=== PATIENT | male | born 1995 | race Caucasian/White ===

== ENCOUNTER 2018-09-03 18:07 | Inpatient (IN) | payer BC ==
[2018-09-03 18:54] LABS: #Basophils 0.1 thou/uL (0.0-0.2); #Monocytes 0.4 thou/uL (0.11-0.59); #Neutrophils 2.6 thou/uL (1.40-6.50); %Basophils 1.1 % (0.0-1.0); %Eosinophils 0.6 % (0.0-10.0); %Lymphocytes 40.1 % (21.0-51.0); %Monocytes 6.9 % (0.0-10.0); %Neutrophils 51.3 % (42.0-75.0); Hemoglobin 15.5 g/dL (14.0-18.0); Mean Corpuscular Hemoglobin 33.8 pg (27.0-31.0); Mean Corpuscular Volume 96.7 fL (78.0-98.0); Mean Platelet Volume 6.5 fL (7.4-10.4); Platelet Count 404 thou/uL (130-400); RBC Distribution Width 11.1 % (11.5-14.5); Red Blood Cell (RBC) Count 4.57 mill/uL (4.70-6.10)
[2018-09-03 19:17] LABS: Bilirubin Negative (Negative); Blood, Urine Negative (Negative); Clarity CLEAR (Clear); Glucose, Urine (Dipstick) Negative (Negative); Leukocyte Negative (Negative); Nitrite Negative (Negative); Protein, Urine (Dipstick) Negative (Neg-Trace); Specific Gravity, Urine 1.011 (1.002-1.036); Urobilinogen 0.2 mg/dL (0.2-1.0)
[2018-09-03 19:17] LABS: ALT (SGPT) 54 U/L (8-55); AST (SGOT) 44 U/L (5-34); Acetaminophen Less than 6.0 mcg/mL (10.0-30.0); Albumin 4.3 g/dL (3.5-5.0); Alcohol 251 mg/dL (Less than 10); Alkaline Phosphatase 95 U/L (40-150); Anion Gap 12 mmol/L (10-20); BUN (Urea Nitrogen) 10 mg/dL (8.9-20.6); Bilirubin, Total 0.3 mg/dL (0.2-1.2); CK (CPK) 115 U/L (30-200); Calc. Creatinine Clearance 0 mL/min (70-130); Carbon Dioxide 28 mmol/L (22-29); Chloride 105 mmol/L (98-107); Estimated GFR-MDRD Greater than 90; Globulin 3.3 g/dL (2.4-3.5); Glucose 113 mg/dL (70-105); Potassium 3.5 mmol/L (3.5-5.1); Protein, Total 7.6 g/dL (6.0-8.3); Salicylate Less than 8.0 mg/dL (15.0-30.0); Sodium 141 mmol/L (136-145)
[2018-09-03 19:27] LABS: Amphetamine Not Detected (NotDetected); Barbiturates Screen Not Detected (NotDetected); Benzodiazepine Screen Not Detected (NotDetected); Cocaine Metabolite Screen Not Detected (NotDetected); Medtox Control Line Valid? VALID (VALID); Medtox Reader # READER 4; Methadone Not Detected (NotDetected); Methamphetamine Not Detected (NotDetected); Opiate Screen Not Detected (NotDetected); Oxycodone Screen Not Detected (NotDetected); Phencyclidine (PCP) Not Detected (NotDetected); THC/Cannabinoid Screen Not Detected (NotDetected); Tricyclic Screen Not Detected (NotDetected)
--- NOTE | 2018-09-03 21:39 | HP ---
PRIMARY CARE PROVIDER: Dr. Jose Michelle in [place], [place]. CHIEF COMPLAINT: Overdose. HISTORY OF PRESENT ILLNESS: Mr. Haq is a pleasant 23-year-old gentleman who was seen at [facility] on 10/03/2018. The patient is currently sleepy. He is surrounded by fa nolberto members at the bedside. History was obtained from patient, discussion with family members, disc ussion with the emergency room physician, and review of medical record. The patient reportedly attempted suicide earlier today. He took 30 of Ambien, 10 mg dose each. He s ent a text to a friend, admitting to suicide attempt. His girlfriend called 911 and he has been brou ght to the emergency room. He has a history of depression, but no suicidal attempts in the past. Initially, he denies drinking any alcohol, but on further questioning, he reports consuming alcohol. He then told me that he drank 3 alcoholic drinks and subsequently told his family that he drank more than that. REVIEW OF SYSTEMS: All other systems were reviewed and found to be negative. PAST MEDICAL HISTORY: Pancreatitis. PAST SURGICAL HISTORY: Right knee surgery. FAMILY HISTORY: Significant for depression in his maternal grandmother. ALLERGIES: No known drug allergies. CURRENT MEDICATIONS: Zoloft 100 mg daily, Xanax 0.5 mg as needed, and zolpidem 10 mg daily. PHYSICAL EXAMINATION: GENERAL: Mr. Haq is sleepy, but arousable, not in acute distress. VITAL SIGNS: Blood pressure is 141/96, pulse 146, respiratory rate 18, and oxygen saturation 95% on room air. He is afebrile. EYES: No scleral icterus. No conjunctival pallor. ENT: Moist mucosal membranes. No oropharyngeal erythema or exudates. NECK: Supple, nontender. Trachea is midline. RESPIRATORY: Accessory muscles of breathing are not active. Chest wall movements are symmetric bila terally. LUNGS: Clear to auscultation without wheeze, rhonchi, or crepitations. CARDIOVASCULAR: S1 and S2 are heard. Regular and tachycardic. Peripheral pulses palpable. No espino tid bruit, no pericardial rub. ABDOMEN: Soft, nontender, bowel sounds are heard. No hepatomegaly, no splenomegaly. NEUROLOGIC: Cranial nerves II through XII intact. Deep tendon reflexes 2+. MUSCULOSKELETAL: Power is 5/5 in all 4 extremities. SKIN: No rashes or subcutaneous nodules. LYMPHATIC: No cervical lymphadenopathy. PSYCHIATRIC: Patient is sleepy, unable to assess affect. He is oriented to person and place, not to time. DATABASE: Mr. Haq's labs and investigations were reviewed. Electrocardiogram shows sinus tac hycardia, no ST changes to suggest an acute coronary syndrome. He has normal white count, normal hem oglobin, elevated platelet count of 404,000, normal electrolytes, normal creatinine, mildly elevated AST of 44, otherwise unremarkable liver profile, normal TSH, normal urinalysis and a negative urine d rug screen. Plasma alcohol level is elevated at 251. ASSESSMENT AND PLAN: Mr. Haq is a pleasant 23-year-old gentleman who was seen at [facility] on 09/03/2018. His problem list includes: 1. Overdose: Mr. Haq is presenting with overdose on Ambien. He is also here with alcohol in toxication. Poison Control Center has been contacted by the emergency room physician. I have advise d observation and intravenous fluids for at least 12 hours. Patient will be admitted to telemetry [facility] for monitoring. 2. Suicide attempt: [facility] will be consulted once patient is medically cleared. 3. Alcohol abuse: We will start patient on ASE protocol as well as banana bag. Many thanks for allowing me to participate in your patient's care. Please feel free to contact me wi th any questions or concerns. LEVEL OF RISK: Moderate. LEVEL OF COMPLEXITY: Moderate.
[2018-09-03] MEDS: Multivitamins, Adult 10 ML, Folic Acid 1 MG, Thiamine HCl 100 MG in Dextrose 5 %-0.45 %... IV SCH (23:21)
[2018-09-03] MEDS ORDERED: Ondansetron ODT 4 MG TAB SL PRN (23:38)
[2018-09-03] MEDS ORDERED: Ondansetron PF 4 MG/2 ML Vial IVP PRN (23:38)
[2018-09-04 00:01] VITALS: BMI 24.3
[2018-09-04 05:40] LABS: Anion Gap 13 mmol/L (10-20); BUN (Urea Nitrogen) 9 mg/dL (8.9-20.6); Calc. Creatinine Clearance 159 mL/min (70-130); Calcium 8.6 mg/dL (7.8-10.44); Carbon Dioxide 26 mmol/L (22-29); Chloride 104 mmol/L (98-107); Estimated GFR-MDRD Greater than 90; Glucose 88 mg/dL (70-105); Potassium 3.9 mmol/L (3.5-5.1); Sodium 139 mmol/L (136-145)
[2018-09-04 05:48] LABS: Eosinophils 2 % (0-10); Lymphocytes 61 % (21-51); MDiff Complete? YES; Mean Corpuscular HGB CONC 33.7 g/dL (32.0-36.0); Mean Corpuscular Hemoglobin 32.9 pg (27.0-31.0); Mean Corpuscular Volume 97.5 fL (78.0-98.0); Mean Platelet Volume 6.6 fL (7.4-10.4); Monocytes 4 % (0-10); Neutrophil 33 % (42-75); Platelet Count 360 thou/uL (130-400); RBC Morphology Normal; Red Blood Cell (RBC) Count 4.57 mill/uL (4.70-6.10); White Blood Cell (WBC) Count 5.5 thou/uL (4.8-10.8)
[2018-09-04] MEDS: Acetaminophen 325 MG TAB PO PRN ×3 (11:02→21:14)
[2018-09-04] MEDS: Sodium Chloride 0.9% 1,000 ML IV SCH ×4 (12:08→20:59)
[2018-09-04] MEDS ORDERED: Lorazepam 1 MG TAB PO PRN (14:58)
--- NOTE | 2018-09-04 15:02 | PDOC.PN ---
- Subjective Encounter Start Date: 09/04/18 Encounter Start Time: 14:35 Subjective: f/u for suicide attempt with Ambien OD and ETOH abuse. States feeling -: better but nervous. Some tachycardia noted on telemetry. - Objective MAR Reviewed: Yes Vital Signs & Weight: Vital Signs (12 hours) Temp Pulse Resp BP Pulse Ox 09/04/18 10:57 98.7 F 105 H 106 H 139/96 H 97 09/04/18 08:56 97.9 F 106 H 17 156/99 H 98 09/04/18 04:00 97.3 F L 89 12 128/78 99 Weight Weight 179 lb 1.6 oz I&O: 09/03/18 09/04/18 09/05/18 06:59 06:59 06:59 Intake Total 820 Balance 820 Result Diagrams: 09/04/18 04:36 09/04/18 04:36 Additional Labs: Laboratory Tests 09/03/18 09/03/18 18:45 18:45 TSH 3rd Generation 1.4051 Plasma Alcohol 251 H EKG Reviewed by me: Yes (Tele - SR in 90-100's) Phys Exam - Physical Examination Constitutional: NAD alert, responsive HEENT: PERRLA, sclera anicteric, oral pharynx no lesions Neck: no nodes, no JVD, supple, full ROM Respiratory: no wheezing, no rales, no rhonchi, clear to auscultation bilateral S1, S2 Cardiovascular: RRR, no significant murmur, no rub, gallop Gastrointestinal: soft, non-tender, no distention, positive bowel sounds Musculoskeletal: no edema, pulses present Neurological: normal sensation, moves all 4 limbs Psychiatric: A&O x 3 Skin: no rash, normal turgor, cap refill <2 seconds Dx/Plan (1) Suicide attempt by drug ingestion Code(s): T50.902A - POISONING BY UNSP DRUG/MEDS/BIOL SUBST, SELF-HARM, INIT Status: Acute Comment: Consult [facility] for safety plan, continue IVF's and supportive mgmt, sitter 1:1 (2) Alcohol intoxication Status: Acute Comment: Add Ativan 1mg po q4h prn agitation/withdrawal (3) Depression Code(s): F32.9 - MAJOR DEPRESSIVE DISORDER, SINGLE EPISODE, UNSPECIFIED Status : Chronic Comment: Resume Zoloft 50mg daily (4) Anxiety Code(s): F41.9 - ANXIETY DISORDER, UNSPECIFIED Status: Acute Comment: Ativan prn - Plan plan discussed w/ family, social worker assistant, DVT proph w/SCDs Continue supportive mgmt -: [place] 1:1 -: [facility] consult for safety plan -: Parents planning on transfer to in psych unit at [facility] -: Likely transfer in 24h * .
[2018-09-04] MEDS: Multivitamins, Adult 10 ML, Folic Acid 1 MG, Thiamine HCl 100 MG in Dextrose 5 %-0.45 %... IV SCH (20:59)
[2018-09-05] MEDS: Acetaminophen 325 MG TAB PO PRN ×2 (03:34→15:42)
[2018-09-05] MEDS: Sodium Chloride 0.9% 1,000 ML IV SCH (14:51)
[2018-09-05] MEDS: metroNIDAZOLE 500 MG TAB PO SCH ×2 (15:01→20:45)
--- NOTE | 2018-09-05 15:02 | PDOC.PN ---
- Subjective Encounter Start Date: 09/05/18 Encounter Start Time: 14:45 Subjective: f/u for suicide attempt currently feeling ok. Apparently had several -: loose stools and stools showed + c. diff toxin/antigen. May have been -: exposed from recent visit with family in healthcare facility. - Objective MAR Reviewed: Yes Vital Signs & Weight: Vital Signs (12 hours) Temp Pulse Resp BP BP Pulse Ox 09/05/18 11:25 98.4 F 84 16 156/109 H 98 09/05/18 08:47 99.4 F 75 15 150/95 H 99 09/05/18 04:00 97.8 F 90 13 150/93 H 100 Weight Weight 179 lb 5 oz I&O: 09/04/18 09/05/18 09/06/18 06:59 06:59 06:59 Intake Total 820 2905 Balance 820 2905 Result Diagrams: 09/04/18 04:36 09/04/18 04:36 Additional Labs: Accuchecks 09/05/18 10:42 POC Glucose 136 H Laboratory Tests 09/03/18 09/03/18 18:45 18:45 TSH 3rd Generation 1.4051 Plasma Alcohol 251 H EKG Reviewed by me: Yes (Tele - SR) Phys Exam - Physical Examination Constitutional: NAD HEENT: PERRLA, sclera anicteric, oral pharynx no lesions Neck: no nodes, no JVD, supple, full ROM Respiratory: no wheezing, no rales, no rhonchi, clear to auscultation bilateral S1, S2 Cardiovascular: RRR, no significant murmur, no rub, gallop Gastrointestinal: soft, non-tender, no distention, positive bowel sounds Musculoskeletal: no edema, pulses present Neurological: normal sensation, moves all 4 limbs Psychiatric: A&O x 3 Skin: no rash, normal turgor, cap refill <2 seconds Dx/Plan (1) Suicide attempt by drug ingestion Code(s): T50.902A - POISONING BY UNSP DRUG/MEDS/BIOL SUBST, SELF-HARM, INIT Status: Acute Comment: Consult [facility] for safety plan, plan for inpt psych admit once medically cleared (2) Alcohol intoxication Status: Acute Comment: Add Ativan 1mg po q4h prn agitation/withdrawal, MVI, Folate (3) Depression Code(s): F32.9 - MAJOR DEPRESSIVE DISORDER, SINGLE EPISODE, UNSPECIFIED Status : Chronic Comment: Resume Zoloft 50mg daily (4) Anxiety Code(s): F41.9 - ANXIETY DISORDER, UNSPECIFIED Status: Acute Comment: Ativan prn (5) Clostridium difficile colitis Status: Acute Comment: Flagyl 500mg po TID, Florastor daily - Plan plan discussed w/ family, social worker assistant, out of bed/ambulate Stable currently -: Sitter 1:1 -: Start Flagyl 500mg po TID -: Contact precautions -: Hold transfer to inpt psych due to + c. difficile * Transfer to medical
[2018-09-05] MEDS ORDERED: Lorazepam 1 MG TAB PO PRN (19:17)
[2018-09-05] MEDS ORDERED: Lorazepam 1 MG TAB PO SCH (19:30)
[2018-09-06] MEDS: Lorazepam 1 MG TAB PO SCH ×6 (00:27→21:39)
[2018-09-06] MEDS: Acetaminophen 325 MG TAB PO PRN (00:29)
[2018-09-06] MEDS: Saccharomyces boulardii 250 MG CAP PO SCH (09:14)
[2018-09-06] MEDS: Folic Acid 1 MG TAB PO SCH (09:14)
[2018-09-06] MEDS: metroNIDAZOLE 500 MG TAB PO SCH ×3 (09:15→21:39)
[2018-09-06] MEDS: Multivit, Therapeutic 1 TAB PO SCH (09:15)
--- NOTE | 2018-09-06 17:51 | PDOC.PN ---
- Subjective Encounter Start Date: 09/06/18 Encounter Start Time: 17:40 Subjective: f/u for C. diff colitis and previous OD with Ambien. 3 BM's today but -: tolerating Flagyl. Less anxiety and no withdrawal per nursing. - Objective MAR Reviewed: Yes Vital Signs & Weight: Vital Signs (12 hours) Temp Pulse Resp BP Pulse Ox 09/06/18 16:00 98.4 F 97 09/06/18 15:47 98.3 F 109 H 20 137/90 98 09/06/18 12:00 96 09/06/18 11:58 98.1 F 115 H 16 137/96 H 98 09/06/18 08:00 97 Weight Weight 179 lb 5 oz I&O: 09/05/18 09/06/18 09/07/18 06:59 06:59 06:59 Intake Total 2905 720 Balance 2905 720 Result Diagrams: 09/04/18 04:36 09/04/18 04:36 Additional Labs: Microbiology 09/05/18 05:20 Stool Campylobacter Antigen Assay - Final 09/05/18 05:20 Stool Shiga Toxin Test - Final 09/05/18 05:20 Stool C. difficile GDH Antigen & Toxins - Final 09/05/18 05:20 Stool Clostridium difficile Toxin A&B PCR - Final 09/05/18 05:20 Stool Stool Culture - Preliminary Laboratory Tests 09/03/18 09/03/18 18:45 18:45 TSH 3rd Generation 1.4051 Plasma Alcohol 251 H Phys Exam - Physical Examination Constitutional: NAD HEENT: PERRLA, sclera anicteric, oral pharynx no lesions Neck: no nodes, no JVD, supple, full ROM Respiratory: no wheezing, no rales, no rhonchi, clear to auscultation bilateral S1, S2 Cardiovascular: RRR, no significant murmur, no rub, gallop Gastrointestinal: soft, non-tender, no distention, positive bowel sounds Musculoskeletal: no edema, pulses present Neurological: normal sensation, moves all 4 limbs Psychiatric: A&O x 3 Skin: no rash, normal turgor, cap refill <2 seconds Dx/Plan (1) Clostridium difficile colitis Status: Acute Comment: Flagyl 500mg po TID, add Vancomycin 125mg po QID, Florastor daily (2) Suicide attempt by drug ingestion Code(s): T50.902A - POISONING BY UNSP DRUG/MEDS/BIOL SUBST, SELF-HARM, INIT Status: Acute Comment: Consult [facility] for safety plan, plan for inpt psych admit once medically cleared (3) Alcohol intoxication Status: Acute Comment: Add Ativan 2mg po q4h prn agitation/withdrawal, MVI, Folate (4) Depression Code(s): F32.9 - MAJOR DEPRESSIVE DISORDER, SINGLE EPISODE, UNSPECIFIED Status : Chronic Comment: Resume Zoloft 50mg daily (5) Anxiety Code(s): F41.9 - ANXIETY DISORDER, UNSPECIFIED Status: Acute Comment: Ativan prn - Plan plan discussed w/ family, continue antibiotics, out of bed/ambulate Stable overall -: Continue Flagyl -: Add Vancomycin 125mg QID -: Continue Ativan, MVI, Folate * .
[2018-09-06] MEDS: Vancomycin HCl 25 MG/ML Oral PO SCH (19:16)
[2018-09-07] MEDS: Vancomycin HCl 25 MG/ML Oral PO SCH ×4 (00:31→17:30)
[2018-09-07] MEDS: Lorazepam 1 MG TAB PO SCH ×6 (00:32→20:43)
[2018-09-07] MEDS: metroNIDAZOLE 500 MG TAB PO SCH ×3 (08:37→20:43)
[2018-09-07] MEDS: Saccharomyces boulardii 250 MG CAP PO SCH (08:37)
[2018-09-07] MEDS: Folic Acid 1 MG TAB PO SCH (08:37)
[2018-09-07] MEDS: Multivit, Therapeutic 1 TAB PO SCH (08:37)
--- NOTE | 2018-09-07 14:18 | PDOC.PN ---
- Subjective Encounter Start Date: 09/07/18 Encounter Start Time: 14:00 Subjective: f/u for c. diff colitis on current Vancomycin/Flagyl. Diarrhea minimal -: and less frequency. Feels better overall. - Objective MAR Reviewed: Yes Vital Signs & Weight: Vital Signs (12 hours) Temp Pulse Resp BP BP Pulse Ox 09/07/18 12:00 98.1 F 83 16 152/82 H 94 L 09/07/18 08:00 97.8 F 90 18 126/81 99 09/07/18 04:00 97.9 F 115 H 16 136/90 96 Weight Weight 179 lb 5 oz I&O: 09/06/18 09/07/18 09/08/18 06:59 06:59 06:59 Intake Total 720 Balance 720 Result Diagrams: 09/04/18 04:36 09/04/18 04:36 Additional Labs: Microbiology 09/05/18 05:20 Stool Campylobacter Antigen Assay - Final 09/05/18 05:20 Stool Shiga Toxin Test - Final 09/05/18 05:20 Stool C. difficile GDH Antigen & Toxins - Final 09/05/18 05:20 Stool Clostridium difficile Toxin A&B PCR - Final 09/05/18 05:20 Stool Stool Culture - Preliminary Laboratory Tests 09/03/18 09/03/18 18:45 18:45 TSH 3rd Generation 1.4051 Plasma Alcohol 251 H Phys Exam - Physical Examination Constitutional: NAD HEENT: PERRLA, sclera anicteric, oral pharynx no lesions Neck: no nodes, no JVD, supple, full ROM Respiratory: no wheezing, no rales, no rhonchi, clear to auscultation bilateral S1, S2 Cardiovascular: RRR, no significant murmur, no rub, gallop Gastrointestinal: soft, non-tender, no distention, positive bowel sounds Musculoskeletal: no edema, pulses present Neurological: normal sensation, moves all 4 limbs Psychiatric: A&O x 3 Skin: no rash, normal turgor, cap refill <2 seconds Dx/Plan (1) Clostridium difficile colitis Status: Acute Comment: Flagyl 500mg po TID, add Vancomycin 125mg po QID, Florastor daily (2) Suicide attempt by drug ingestion Code(s): T50.902A - POISONING BY UNSP DRUG/MEDS/BIOL SUBST, SELF-HARM, INIT Status: Acute Comment: Consult [facility] for safety plan, plan for inpt psych admit once medically cleared (3) Alcohol intoxication Status: Acute Comment: Add Ativan 2mg po q4h prn agitation/withdrawal, MVI, Folate (4) Depression Code(s): F32.9 - MAJOR DEPRESSIVE DISORDER, SINGLE EPISODE, UNSPECIFIED Status : Chronic Comment: Resume Zoloft 50mg daily (5) Anxiety Code(s): F41.9 - ANXIETY DISORDER, UNSPECIFIED Status: Acute Comment: Ativan prn - Plan plan discussed w/ family, continue antibiotics, social security benefits interviewer, out of bed/ ambulate, DVT proph w/SCDs Stable overall -: Continue dual coverage with Flagyl/Vancomycin -: Florastor 250mg daily -: Increase free-H2O intake -: Likely recheck stool studies in 24h * .
[2018-09-07] MEDS: Acetaminophen 325 MG TAB PO PRN (21:41)
[2018-09-08] MEDS: Vancomycin HCl 25 MG/ML Oral PO SCH ×5 (00:57→18:14)
[2018-09-08] MEDS: Lorazepam 1 MG TAB PO SCH ×6 (01:11→20:29)
[2018-09-08] MEDS: Multivit, Therapeutic 1 TAB PO SCH (10:00)
[2018-09-08] MEDS: Folic Acid 1 MG TAB PO SCH (10:00)
[2018-09-08] MEDS: Saccharomyces boulardii 250 MG CAP PO SCH (10:00)
[2018-09-08] MEDS: metroNIDAZOLE 500 MG TAB PO SCH ×3 (10:01→20:29)
--- NOTE | 2018-09-08 18:07 | PDOC.PN ---
- Subjective Encounter Start Date: 09/08/18 Encounter Start Time: 17:40 Subjective: f/u for C. diff colitis. No loose stool and feels fine. Repeat C. diff neg. - Objective MAR Reviewed: Yes Vital Signs & Weight: Vital Signs (12 hours) Temp Pulse Resp BP Pulse Ox 09/08/18 08:00 97.6 F 74 16 130/80 99 Weight Weight 179 lb 5 oz Result Diagrams: 09/04/18 04:36 09/04/18 04:36 Additional Labs: Microbiology 09/08/18 Unknown Stool C. difficile GDH Antigen & Toxins - Final 09/05/18 05:20 Stool Campylobacter Antigen Assay - Final 09/05/18 05:20 Stool Shiga Toxin Test - Final 09/05/18 05:20 Stool C. difficile GDH Antigen & Toxins - Final 09/05/18 05:20 Stool Clostridium difficile Toxin A&B PCR - Final 09/05/18 05:20 Stool Stool Culture - Preliminary Laboratory Tests 09/03/18 09/03/18 18:45 18:45 TSH 3rd Generation 1.4051 Plasma Alcohol 251 H Phys Exam - Physical Examination Constitutional: NAD HEENT: PERRLA, sclera anicteric, oral pharynx no lesions Neck: no nodes, no JVD, supple, full ROM Respiratory: no wheezing, no rales, no rhonchi, clear to auscultation bilateral S1, S2 Cardiovascular: RRR, no significant murmur, no rub, gallop Gastrointestinal: soft, non-tender, no distention, positive bowel sounds Musculoskeletal: no edema, pulses present Neurological: non-focal, normal sensation, moves all 4 limbs Psychiatric: A&O x 3 Skin: no rash, normal turgor, cap refill <2 seconds Dx/Plan (1) Clostridium difficile colitis Status: Acute Comment: Flagyl 500mg po TID, add Vancomycin 125mg po QID, Florastor daily, repeat C. diff toxin and antigen negative x 1, repeat c. diff in am and if negative may transfer to inpt psych (2) Suicide attempt by drug ingestion Code(s): T50.902A - POISONING BY UNSP DRUG/MEDS/BIOL SUBST, SELF-HARM, INIT Status: Acute Comment: Consult [facility] for safety plan, plan for inpt psych admit once medically cleared, medically cleared currently, can transfer to inpt psych at [place] in [place] 09/09/18 (3) Alcohol intoxication Status: Acute Comment: Add Ativan 2mg po q4h prn agitation/withdrawal, MVI, Folate (4) Depression Code(s): F32.9 - MAJOR DEPRESSIVE DISORDER, SINGLE EPISODE, UNSPECIFIED Status : Chronic Comment: Resume Zoloft 50mg daily (5) Anxiety Code(s): F41.9 - ANXIETY DISORDER, UNSPECIFIED Status: Acute Comment: Ativan prn - Plan continue antibiotics, mental health social worker, out of bed/ambulate, DVT proph w/SCDs Stable overall -: Continue Flagyl and Vancomycin -: Repeat C. diff antigen/toxin in am -: Plan for d/c to inpt psych if repeat negative * .
[2018-09-08] MEDS ORDERED: Ibuprofen 600 MG TAB PO PRN (18:10)
[2018-09-09] MEDS: Lorazepam 1 MG TAB PO SCH ×6 (01:02→21:03)
[2018-09-09] MEDS: Vancomycin HCl 25 MG/ML Oral PO SCH ×3 (05:22→18:23)
[2018-09-09] MEDS: Saccharomyces boulardii 250 MG CAP PO SCH (08:38)
[2018-09-09] MEDS: Folic Acid 1 MG TAB PO SCH (08:38)
[2018-09-09] MEDS: metroNIDAZOLE 500 MG TAB PO SCH ×3 (08:38→21:03)
[2018-09-09] MEDS: Multivit, Therapeutic 1 TAB PO SCH (08:38)
[2018-09-09] MEDS ORDERED: Lorazepam 1 MG TAB PO SCH ×2 (17:15→18:15)
[2018-09-10] MEDS: Vancomycin HCl 25 MG/ML Oral PO SCH ×3 (00:09→12:11)
[2018-09-10] MEDS: Lorazepam 1 MG TAB PO SCH ×4 (00:09→12:12)
[2018-09-10] MEDS: Saccharomyces boulardii 250 MG CAP PO SCH (08:34)
[2018-09-10] MEDS: metroNIDAZOLE 500 MG TAB PO SCH (08:34)
[2018-09-10] MEDS: Folic Acid 1 MG TAB PO SCH (08:35)
[2018-09-10] MEDS: Multivit, Therapeutic 1 TAB PO SCH (08:35)
[2018-09-10 08:40] VITALS: BP 137/90; TEMP 97.7
[2018-09-10] MEDS ORDERED: Vancomycin HCl 25 MG/ML Oral PO SCH ×2 (10:15)
--- NOTE | 2018-09-12 17:49 | EKG ---
Test Reason : Blood Pressure : / mmHG Vent. Rate : 145 BPM Atrial Rate : 145 BPM P-R Int : 128 ms QRS Dur : 096 ms QT Int : 280 ms P-R-T Axes : 018 044 017 degrees QTc Int : 434 ms Sinus tachycardia Possible Left atrial enlargement Incomplete right bundle branch block Borderline ECG Confirmed by SHAHANA UNR ([id number]), publications editor OPAL BANKS ([id number]) on 09/12/2018 5:48:57 PM Referred By: Confirmed By:SHAHANA NUR
== END 2018-09-10 13:43 | DRG 918 ==
LOC: ERS 18:07 → OBSVTOIN 19:52 → 2NO 19:52 → ONC 09-05 17:23
PROVIDERS: ADMIT Internal Medicine; ATTEND Internal Medicine
DX: T42.6X2A Poisoning by other antiepileptic and sedative-hypnotic drugs, intentional self-harm, initial encounter (principal); A04.72 Enterocolitis due to Clostridium difficile, not specified as recurrent; F10.10 Alcohol abuse, uncomplicated; F32.9 Major depressive disorder, single episode, unspecified; F41.9 Anxiety disorder, unspecified; Z79.899 Other long term (current) drug therapy
CPT/HCPCS: 36415; 36416; 51701; 80048; 80053; 80306; 80307; 81003; 82550; 84443; 85025; 87045; 87046; 87324; 87449; 87493; 87899; 93005; 96360; J3411; J7042